=== PATIENT | male | born 1930 | race Caucasian/White ===

== ENCOUNTER 2017-10-04 17:02 | Observation (INO) ==
[2017-10-04] MEDS ORDERED: MECLIZINE 25 MG TABLET PO STA (17:25)
[2017-10-04 17:56] LABS: Basophils % 0.4 % (0.0-0.8); Eosinophils # 0.1 10*3/uL (0.0-0.87); Eosinophils % 2.6 % (0.00-10.9); Hematocrit 43.5 VOL% (42.0-52.0); Hemoglobin 15.1 GM/DL (14.0-18.0); Immature Granulocytes % 0.2 %; Immature Granulocytes Absolute 0.01 #; Lymphocytes # 1.6 10*3/uL (1.4-4.0); Mean Corpuscular HGB Conc 34.7 GM/DL (32-36); Mean Corpuscular Hemoglobin 33 PG (27-34); Mean Corpuscular Volume 93.5 FL (87-102); Mean Platelet Volume 9.6 FL (9.6-12.0); Monocytes # 0.4 10*3/uL (0.11-0.8); Monocytes % 7.7 % (1.7-12.7); Neutrophils # 2.4 10*3/uL (1.4-7.4); Neutrophils % 53.1 % (38.7-73.9); Platelet Count 142 T/CUMM (130-400); Red Blood Count 4.65 MC/CUMM (3.8-5.5); Red Cell Distribution Width 14.3 % (9.3-17.3); White Blood Count 4.6 T/CUMM (4-12)
[2017-10-04] MEDS ORDERED: MECLIZINE 25 MG TABLET ONE (17:58)
[2017-10-04 18:30] LABS: Albumin 4.1 G/DL (3.4-5.0); Bilirubin,Total 0.7 MG/DL (0.2-1.0); CKMB % 3.4 %; Calcium 8.9 MG/DL (8.5-10.1); Osmolality,Calculated 281.5 MOS/KG (273-304); Potassium 4.7 MMOL/L (3.5-5.1); Thyroid Stimulating Hormone 1.29 uIU/ml (0.358-3.74); Total Protein 7.4 G/DL (6.4-8.3)
[2017-10-04 18:31] LABS: Troponin I Only 0.054 NG/ML (0.00-0.045)
[2017-10-04] MEDS ORDERED: ONDANSETRON 4 MG/2 ML VIAL IV PRN (19:20)
[2017-10-04] MEDS ORDERED: SODIUM CHLORIDE 0.9% 1,000 ML IV ONE (19:22)
[2017-10-04] MEDS ORDERED: ENOXAPARIN 40 MG/0.4 ML SYRINGE SUBCUT SCH (19:30)
[2017-10-04] MEDS ORDERED: ENOXAPARIN 40 MG/0.4 ML SYRINGE ONE (19:33)
[2017-10-04] MEDS: SODIUM CHLORIDE 0.9% 1,000 ML IV SCH (21:00)
[2017-10-04 22:42] LABS: CKMB % 3.5 %
[2017-10-04 22:45] LABS: Troponin I Only 0.055 NG/ML (0.00-0.045)
[2017-10-05 01:11] LABS: CKMB % 3.3 %
[2017-10-05 01:12] LABS: Troponin I Only 0.063 NG/ML (0.00-0.045)
[2017-10-05] MEDS ORDERED: ACETAMINOPHEN 325 MG TABLET PO PRN (05:35)
[2017-10-05 06:56] LABS: Basophils % 0.8 % (0.0-0.8); Eosinophils # 0.2 10*3/uL (0.0-0.87); Eosinophils % 4.1 % (0.00-10.9); Hemoglobin 13.7 GM/DL (14.0-18.0); Immature Granulocytes % 0.3 %; Immature Granulocytes Absolute 0.01 #; Lymphocytes # 1.4 10*3/uL (1.4-4.0); Lymphocytes % 38.6 % (21.2-54.2); Mean Corpuscular HGB Conc 34.3 GM/DL (32-36); Mean Corpuscular Hemoglobin 33 PG (27-34); Mean Corpuscular Volume 94.8 FL (87-102); Mean Platelet Volume 9.8 FL (9.6-12.0); Monocytes # 0.3 10*3/uL (0.11-0.8); Monocytes % 7.9 % (1.7-12.7); Neutrophils # 1.8 10*3/uL (1.4-7.4); Neutrophils % 48.3 % (38.7-73.9); Platelet Count 128 T/CUMM (130-400); Red Blood Count 4.22 MC/CUMM (3.8-5.5); Red Cell Distribution Width 14.2 % (9.3-17.3); White Blood Count 3.7 T/CUMM (4-12)
[2017-10-05 07:45] LABS: Calcium 8.3 MG/DL (8.5-10.1); Osmolality,Calculated 286.3 MOS/KG (273-304); Potassium 4.1 MMOL/L (3.5-5.1); Risk Ratio 2.46; VLDL CHOLESTEROL 17.4 MG/DL
[2017-10-05 07:49] LABS: CKMB % 3.1 %; Troponin I Only 0.06 NG/ML (0.00-0.045)
[2017-10-05] MEDS: SODIUM CHLORIDE 0.9% 1,000 ML IV SCH (08:35)
[2017-10-05] MEDS ORDERED: ASPIRIN EC 81 MG TABLET PO SCH (09:00)
[2017-10-05] MEDS ORDERED: CITALOPRAM 20 MG TABLET PO SCH (09:00)
[2017-10-05] MEDS ORDERED: PANTOPRAZOLE 40 MG TABLET PO SCH (09:00)
[2017-10-05 09:42] VITALS: BP 158/80
== END 2017-10-05 11:35 | disposition home or self-care (01) ==
LOC: N.EDINP 17:02 → N.ED 17:02 → N.5E 19:50
PROVIDERS: ADMIT Internal Medicine Geriatric Medicine; ATTEND Internal Medicine Geriatric Medicine

== ENCOUNTER 2018-12-12 14:23 | Inpatient (IN) ==
[2018-12-12 15:55] LABS: Basophils % 0.4 % (0.0-0.8); Eosinophils # 0.1 10*3/uL (0.0-0.87); Eosinophils % 2.1 % (0.00-10.9); Hematocrit 43.8 VOL% (42.0-52.0); Hemoglobin 14.6 GM/DL (14.0-18.0); Immature Granulocytes % 0.2 %; Immature Granulocytes Absolute 0.01 #; Lymphocytes # 1.3 10*3/uL (1.4-4.0); Lymphocytes % 26.1 % (21.2-54.2); Mean Corpuscular HGB Conc 33.3 GM/DL (32-36); Mean Corpuscular Volume 96.3 FL (87-102); Mean Platelet Volume 9.7 FL (9.6-12.0); Monocytes % 6.6 % (1.7-12.7); Neutrophils % 64.6 % (38.7-73.9); Platelet Count 146 T/CUMM (130-400); Red Blood Count 4.55 MC/CUMM (3.8-5.5); Red Cell Distribution Width 14.3 % (9.3-17.3); White Blood Count 4.8 T/CUMM (4-12)
[2018-12-12 16:20] LABS: Albumin 3.9 G/DL (3.4-5.0); Bilirubin,Total 0.6 MG/DL (0.2-1.0); Calcium 9.1 MG/DL (8.5-10.1); Osmolality,Calculated 275.8 MOS/KG (273-304); Total Protein 7.3 G/DL (6.4-8.3)
[2018-12-12] MEDS ORDERED: ONDANSETRON 4 MG/2 ML VIAL ONE ×2 (18:04→19:38)
[2018-12-12] MEDS ORDERED: DEXAMETHASONE 4 MG/1 ML VIAL MISC INJ STA (19:26)
[2018-12-12] MEDS ORDERED: ONDANSETRON 4 MG/2 ML VIAL IV STA (19:39)
[2018-12-12] MEDS ORDERED: LORazepam 2 MG/1 ML VIAL IV STA (20:21)
[2018-12-12] MEDS ORDERED: ACETAMINOPHEN 325 MG TABLET PO PRN (20:48)
[2018-12-12] MEDS ORDERED: ONDANSETRON 4 MG/2 ML VIAL IV PRN (20:48)
[2018-12-12] MEDS ORDERED: MORPHINE 4 MG/1 ML VIAL IV PRN (20:48)
[2018-12-12] MEDS: SODIUM CHLORIDE 0.9% 1,000 ML IV SCH (22:46)
[2018-12-13] MEDS ORDERED: LORazepam 2 MG/1 ML VIAL IV ONE (03:18)
[2018-12-13 05:16] LABS: Albumin 4.4 G/DL (3.4-5.0); Bilirubin,Total 1.4 MG/DL (0.2-1.0); Calcium 9.6 MG/DL (8.5-10.1)
[2018-12-13] MEDS: SODIUM CHLORIDE 0.9% 1,000 ML IV SCH ×3 (05:29→18:27)
[2018-12-13] MEDS: TEMAZEPAM 15 MG CAPSULE PO SCH ×2 (05:52→21:54)
[2018-12-13] MEDS: DEXAMETHASONE 4 MG/1 ML VIAL IV SCH ×3 (06:59→21:58)
[2018-12-13] MEDS: CITALOPRAM 20 MG TABLET PO SCH (09:00)
[2018-12-13] MEDS: PANTOPRAZOLE 40 MG TABLET PO SCH (09:00)
[2018-12-13] MEDS: ASPIRIN EC 81 MG TABLET PO SCH (09:00)
[2018-12-14] MEDS ORDERED: HALOPERIDOL 5 MG/ML AMP IM ONE (01:23)
[2018-12-14] MEDS: SODIUM CHLORIDE 0.9% 1,000 ML IV SCH ×3 (03:15→20:44)
[2018-12-14] MEDS: DEXAMETHASONE 4 MG/1 ML VIAL IV SCH ×3 (06:38→21:52)
[2018-12-14] MEDS: ASPIRIN EC 81 MG TABLET PO SCH (08:56)
[2018-12-14] MEDS: CITALOPRAM 20 MG TABLET PO SCH (08:56)
[2018-12-14] MEDS: PANTOPRAZOLE 40 MG TABLET PO SCH (08:57)
[2018-12-14] MEDS: TEMAZEPAM 15 MG CAPSULE PO SCH (20:44)
[2018-12-14] MEDS ORDERED: LORazepam 2 MG/1 ML VIAL IM PRN (23:00)
[2018-12-15] MEDS ORDERED: LORazepam 2 MG/1 ML VIAL IV PRN (03:11)
[2018-12-15] MEDS: SODIUM CHLORIDE 0.9% 1,000 ML IV SCH ×2 (04:41→12:41)
[2018-12-15] MEDS: DEXAMETHASONE 4 MG/1 ML VIAL IV SCH ×2 (07:10→16:01)
[2018-12-15] MEDS: PANTOPRAZOLE 40 MG TABLET PO SCH (09:18)
[2018-12-15] MEDS: CITALOPRAM 20 MG TABLET PO SCH (09:19)
[2018-12-15] MEDS ORDERED: BISACODYL 5 MG TABLET PO PRN (20:51)
[2018-12-15] MEDS: TEMAZEPAM 15 MG CAPSULE PO SCH (21:11)
[2018-12-15] MEDS ORDERED: LORazepam 2 MG/1 ML VIAL IV ONE (21:58)
[2018-12-15] MEDS ORDERED: MORPHINE 4 MG/1 ML VIAL IV PRN (22:55)
[2018-12-15] MEDS ORDERED: fentaNYL 25 MCG/HR PATCH TRANSDERM SCH (23:00)
[2018-12-16 01:03] VITALS: BP 214/97
[2018-12-16] MEDS: DEXAMETHASONE 4 MG/1 ML VIAL IV SCH ×3 (01:23→15:06)
[2018-12-16] MEDS: CITALOPRAM 20 MG TABLET PO SCH (09:15)
[2018-12-16] MEDS: PANTOPRAZOLE 40 MG TABLET PO SCH (09:16)
== END 2018-12-16 15:18 | disposition hospice, home (50) | DRG 54 ==
LOC: N.ED 14:23 → SUATTDRO 20:02 → N.EDINP 20:02 → N.4E 22:00
PROVIDERS: ADMIT Internal Medicine; ATTEND Family Medicine